=== PATIENT | male | born 1965 | race Caucasian/White ===

== ENCOUNTER → 2016-08-06 | Outpatient (REF) | payer MEDICAID ==
[~2016-08-06] MED LIST: COUM7.5T PO; TYLE325T5 PO; TYLE650T30 PO
[2016-08-06 11:19] LABS: INR 2.62
== END ==
LOC: M SFHCCLAY 08:11
PROVIDERS: ATTEND Family Medicine
DX: Z79.01 Long term (current) use of anticoagulants (principal)

== ENCOUNTER → 2016-09-03 | Outpatient (REF) | payer MEDICAID ==
[2016-09-03 12:20] LABS: INR 2.26
== END ==
LOC: M LABSMT 08:22
PROVIDERS: ATTEND Family Medicine
DX: Z79.01 Long term (current) use of anticoagulants (principal)

== ENCOUNTER → 2016-10-01 | Outpatient (REF) | payer MEDICAID ==
[2016-10-01 12:01] LABS: INR 1.98
== END ==
LOC: M SFHCCLAY 08:18
PROVIDERS: ATTEND Family Medicine
DX: Z51.81 Encounter for therapeutic drug level monitoring (principal); Z79.01 Long term (current) use of anticoagulants

== ENCOUNTER → 2016-10-15 | Outpatient (REF) | payer MEDICAID ==
[2016-10-15 11:28] LABS: INR 2.5
== END ==
LOC: M SFHCCLAY 08:33
PROVIDERS: ATTEND Family Medicine
DX: Z51.81 Encounter for therapeutic drug level monitoring (principal); Z79.01 Long term (current) use of anticoagulants

== ENCOUNTER → 2016-11-12 | Outpatient (REF) | payer OTHER ==
[2016-11-12 12:44] LABS: INR 1.78
[2016-11-12 12:57] LABS: ANION GAP 10 MEQ/L (8-16); BLOOD UREA NITROGEN 10 MG/DL (7-18); CALCIUM LEVEL 8.7 MG/DL (8.5-10.1); CARBON DIOXIDE LEVEL 26 MEQ/L (21-32); CHLORIDE LEVEL 103 MEQ/L (98-107); CREATININE FOR GFR 0.76 MG/DL (0.70-1.30); GLOMERULAR FILTRATION RATE > 60.0 (>60); GLUCOSE, FASTING 176 MG/DL (70-105); POTASSIUM SERUM 3.9 MEQ/L (3.5-5.1); SODIUM LEVEL 139 MEQ/L (136-145)
== END ==
LOC: M SFHCCLAY 08:27
PROVIDERS: ATTEND Family Medicine
DX: I10 Essential (primary) hypertension (principal); E11.9 Type 2 diabetes mellitus without complications; Z79.01 Long term (current) use of anticoagulants

== ENCOUNTER → 2016-11-26 | Outpatient (REF) | payer OTHER ==
[2016-11-26 11:57] LABS: INR 2.84
== END ==
LOC: M SFHCCLAY 07:43
PROVIDERS: ATTEND Family Medicine
DX: Z51.81 Encounter for therapeutic drug level monitoring (principal); Z79.01 Long term (current) use of anticoagulants

== ENCOUNTER → 2016-12-24 | Outpatient (REF) | payer OTHER ==
[2016-12-24 11:39] LABS: INR 2.25
== END ==
LOC: M SFHCCLAY 09:07
PROVIDERS: ATTEND Family Medicine
DX: Z51.81 Encounter for therapeutic drug level monitoring (principal); Z79.01 Long term (current) use of anticoagulants

== ENCOUNTER → 2017-01-02 | Outpatient (CLI) | payer OTHER ==
--- NOTE | 2017-01-03 01:27 | REP ---
Clinical: Chronic cough . Comparison: 07/25/2014 . Technique: PA and lateral. Findings: The mediastinum and cardiac silhouette are normal. The lung [place] are clear and without acute consolidation, effusion, or pneumothorax. The skeletal structures are intact and normal. Impression: 1. No acute cardiopulmonary process. 2. If the patient remains symptomatic consider chest CT for further investigation.. Signed by Julio Torres MD 01/03/2017 01:19 A
== END ==
LOC: M CLY 11:36
PROVIDERS: ATTEND Family Medicine
DX: R05 Cough (principal)

== ENCOUNTER → 2017-01-22 | Outpatient (REF) | payer OTHER ==
[2017-01-22 11:57] LABS: INR 2.27
== END ==
LOC: M SFHCCLAY 08:41
PROVIDERS: ATTEND Family Medicine
DX: Z51.81 Encounter for therapeutic drug level monitoring (principal); Z79.01 Long term (current) use of anticoagulants

== ENCOUNTER → 2017-01-24 | Outpatient (REF) | payer OTHER ==
[2017-01-24 12:14] LABS: INR 2.12
== END ==
LOC: M SFHCCLAY 10:42
PROVIDERS: ATTEND Family Medicine
DX: Z51.81 Encounter for therapeutic drug level monitoring (principal); Z79.01 Long term (current) use of anticoagulants

== ENCOUNTER → 2017-02-06 | Outpatient (REF) | payer OTHER | LOC: M SFHCCLAY 08:33 | PROVIDERS: ATTEND Family Medicine | DX: Z51.81 Encounter for therapeutic drug level monitoring (principal); Z79.01 Long term (current) use of anticoagulants ==

== ENCOUNTER → 2017-02-13 | Outpatient (CLI) | payer OTHER ==
[~2017-02-13] MED LIST changes: +METHACHOLINE KIT (J7674) INH ONE
--- NOTE | 2017-02-13 15:07 | PFTRPT ---
Tech: Margo GILLIAM RRT Age: 51 Sex: Male Race: Height: 77.00 Inches Weight: 415.00 Lbs BSA: 3.05 Diagnosis: CHRONIC COUGH METHACHOLINE CHALLENGE REPORT: ORDERING PROVIDER: Inocente Castillo MD DATE OF SERVICE: 02/13/17 INTERPRETATION: The study was of excellent technical quality. Under protocol, methacholine was administered. At a maximal dose of 25 mg (188.875 CDUs) of methacholine,a 28% decline in the FEV1 was noted. A PC20 of 13.01 is in the indeterminate category. Flow rates did return to baseline post bronchodilator administration. IMPRESSION: Borderline methacholine challenge study in view of the above. Please correlate clinically. MTDD
== END ==
LOC: M CARPUL 13:55
PROVIDERS: ATTEND Family Medicine
DX: R05 Cough (principal)

== ENCOUNTER → 2017-02-14 | Outpatient (CLI) | payer OTHER ==
[~2017-02-14] MED LIST changes: -METHACHOLINE KIT (J7674) INH ONE
--- NOTE | 2017-02-14 08:50 | REP ---
CT of the chest without IV contrast: Comparison is the chest CT pulmonary angiogram of 10/19/2014. There are no pulmonary emboli on the comparison chest CT. This comparison chest CT is the most recent prior chest CT. On the current study there is minor discoid atelectasis in the right middle lobe. There is a small linear parenchymal scar in the deep os posterior sulcus of the left lung, unchanged. The lung hamilton otherwise clear. There are no acute infiltrates. There are no masses or nodules. There is no mediastinal or axillary adenopathy. In the absence of IV contrast the study is insensitive for hilar adenopathy. The unenhanced thoracic aorta is unremarkable. Cardiac size is normal. There is no pericardial effusion. The visualized upper abdominal contents demonstrate a single gallbladder calculus. This is unchanged. The adrenals are unremarkable. The visualized portions of the liver, spleen and pancreas are unremarkable. Impression: Cholelithiasis, unchanged. Minor discoid atelectasis in the right middle lobe. Small parenchymal scar in the deep posterior sulcus of the left lung. The the lung hamilton otherwise clear. There were no pulmonary emboli most recent prior CT chest pulmonary angiogram. Signed by Layo Chaudhari MD 02/14/2017 08:42 A
== END ==
LOC: M RAD 07:35
PROVIDERS: ATTEND Family Medicine
DX: K80.20 Calculus of gallbladder without cholecystitis without obstruction (principal); J98.11 Atelectasis

== ENCOUNTER → 2017-03-05 | Outpatient (REF) | payer OTHER ==
[2017-03-05 12:09] LABS: INR 1.99
== END ==
LOC: M SFHCCLAY 08:40
PROVIDERS: ATTEND Family Medicine
DX: Z51.81 Encounter for therapeutic drug level monitoring (principal); Z79.01 Long term (current) use of anticoagulants

== ENCOUNTER → 2017-03-13 | Outpatient (REF) | payer OTHER | LOC: M SFHCCLAY 17:25 | PROVIDERS: ATTEND Family Medicine | DX: L91.8 Other hypertrophic disorders of the skin (principal) ==

== ENCOUNTER → 2017-03-31 | Outpatient (REF) | LOC: M LAB 15:51 | PROVIDERS: ATTEND Nurse Practitioner Adult Health | DX: Z02.1 Encounter for pre-employment examination (principal) ==

== ENCOUNTER → 2017-04-02 | Outpatient (REF) | payer OTHER ==
[2017-04-02 19:41] LABS: INR 1.89
== END ==
LOC: M SFHCCLAY 08:20
PROVIDERS: ATTEND Family Medicine
DX: Z79.01 Long term (current) use of anticoagulants (principal)

== ENCOUNTER → 2017-04-16 | Outpatient (REF) | payer OTHER ==
[2017-04-16 11:36] LABS: INR 2.29
== END ==
LOC: M SFHCCLAY 08:43
PROVIDERS: ATTEND Family Medicine
DX: Z51.81 Encounter for therapeutic drug level monitoring (principal); Z79.01 Long term (current) use of anticoagulants

== ENCOUNTER → 2017-05-14 | Outpatient (REF) | payer OTHER ==
[2017-05-14 11:58] LABS: INR 2.26
== END ==
LOC: M SFHCCLAY 09:01
PROVIDERS: ATTEND Family Medicine
DX: Z79.01 Long term (current) use of anticoagulants (principal)

== ENCOUNTER → 2017-06-11 | Outpatient (REF) | payer OTHER ==
[2017-06-11 11:59] LABS: INR 2.35
== END ==
LOC: M SFHCCLAY 08:35
PROVIDERS: ATTEND Family Medicine
DX: I26.99 Other pulmonary embolism without acute cor pulmonale (principal)

== ENCOUNTER → 2017-07-10 | Outpatient (REF) | payer BC ==
[2017-07-10 11:44] LABS: INR 1.97
== END ==
LOC: M SFHCCLAY 09:02
PROVIDERS: ATTEND Family Medicine
DX: Z51.81 Encounter for therapeutic drug level monitoring (principal); Z79.01 Long term (current) use of anticoagulants

== ENCOUNTER → 2017-07-24 | Outpatient (REF) | payer BC ==
[2017-07-24 12:40] LABS: INR 2.06; PROTHROMBIN TIME 23.9 SECONDS (12.4-14.5)
== END ==
LOC: M SFHCCLAY 09:06
DX: Z51.81 Encounter for therapeutic drug level monitoring (principal); Z79.01 Long term (current) use of anticoagulants
CPT/HCPCS: 85610

== ENCOUNTER → 2017-08-21 | Outpatient (REF) | payer BC ==
[2017-08-21 12:46] LABS: INR 2.15; PROTHROMBIN TIME 24.8 SECONDS (12.4-14.5)
== END ==
LOC: M SFHCCLAY 08:52
DX: Z51.81 Encounter for therapeutic drug level monitoring (principal); Z79.01 Long term (current) use of anticoagulants
CPT/HCPCS: 85610

== ENCOUNTER → 2017-09-18 | Outpatient (REF) | payer BC ==
[2017-09-18 11:55] LABS: INR 1.94; PROTHROMBIN TIME 22.8 SECONDS (12.4-14.5)
[2017-09-18 12:39] LABS: ANION GAP 8 MEQ/L (8-16); BLOOD UREA NITROGEN 14 MG/DL (7-18); CALCIUM LEVEL 9.3 MG/DL (8.5-10.1); CARBON DIOXIDE LEVEL 30 MEQ/L (21-32); CHLORIDE LEVEL 102 MEQ/L (98-107); CREATININE FOR GFR 0.72 MG/DL (0.70-1.30); GLOMERULAR FILTRATION RATE > 60.0 (>56); GLUCOSE, FASTING 85 MG/DL (70-100); POTASSIUM SERUM 3.9 MEQ/L (3.5-5.1); SODIUM LEVEL 140 MEQ/L (136-145)
[2017-09-18 13:14] LABS: ESTIMATED AVERAGE GLUCOSE 128 MG/DL (60-110); HEMOGLOBIN A1c 6.1 %
== END ==
LOC: M SFHCCLAY 08:59
DX: I26.99 Other pulmonary embolism without acute cor pulmonale (principal); E11.9 Type 2 diabetes mellitus without complications; I10 Essential (primary) hypertension
CPT/HCPCS: 83036

== ENCOUNTER → 2017-10-16 | Outpatient (REF) | payer BC ==
[2017-10-16 11:41] LABS: INR 2.08; PROTHROMBIN TIME 24.1 SECONDS (12.4-14.5)
== END ==
LOC: M SFHCCLAY 08:22
DX: Z79.01 Long term (current) use of anticoagulants (principal)
CPT/HCPCS: 85610

== ENCOUNTER → 2017-11-13 | Outpatient (REF) | payer BC ==
[2017-11-13 11:50] LABS: INR 2.08; PROTHROMBIN TIME 24.1 SECONDS (12.4-14.5)
== END ==
LOC: M SFHCCLAY 08:34
DX: Z51.81 Encounter for therapeutic drug level monitoring (principal); Z79.01 Long term (current) use of anticoagulants
CPT/HCPCS: 85610

== ENCOUNTER → 2018-01-08 | Outpatient (REF) | payer BC ==
[2018-01-08 12:12] LABS: INR 1.96
== END ==
LOC: M SFHCCLAY 08:30
DX: Z79.01 Long term (current) use of anticoagulants (principal)
CPT/HCPCS: 85610

== ENCOUNTER → 2018-02-05 | Outpatient (REF) | payer BC ==
[2018-02-05 11:57] LABS: INR 2.23; PROTHROMBIN TIME 25.1 SECONDS (12.1-14.4)
== END ==
LOC: M SFHCCLAY 09:21
DX: Z51.81 Encounter for therapeutic drug level monitoring (principal); Z79.01 Long term (current) use of anticoagulants

== ENCOUNTER → 2018-03-05 | Outpatient (REF) | payer BC ==
[2018-03-05 12:55] LABS: INR 2.19; PROTHROMBIN TIME 24.8 SECONDS (12.1-14.4)
== END ==
LOC: M SFHCCLAY 08:46
DX: Z51.81 Encounter for therapeutic drug level monitoring (principal); Z79.01 Long term (current) use of anticoagulants
CPT/HCPCS: 85610

== ENCOUNTER → 2018-04-01 | Outpatient (REF) | payer BC ==
[2018-04-01 12:15] LABS: INR 2.44
== END ==
LOC: M SFHCCLAY 08:02
DX: Z79.01 Long term (current) use of anticoagulants (principal)
CPT/HCPCS: 85610

== ENCOUNTER → 2018-04-29 | Outpatient (REF) | payer BC ==
[2018-04-29 12:07] LABS: INR 2.19; PROTHROMBIN TIME 24.8 SECONDS (12.1-14.4)
== END ==
LOC: M SFHCCLAY 08:35
DX: Z79.01 Long term (current) use of anticoagulants (principal)
CPT/HCPCS: 85610

== ENCOUNTER → 2018-05-27 | Outpatient (REF) | payer BC ==
[2018-05-27 12:02] LABS: INR 2.44
== END ==
LOC: M SFHCCLAY 08:33
DX: Z51.81 Encounter for therapeutic drug level monitoring (principal); Z79.01 Long term (current) use of anticoagulants

== ENCOUNTER → 2018-06-24 | Outpatient (REF) | payer BC ==
[2018-06-24 11:51] LABS: INR 2.08; PROTHROMBIN TIME 23.8 SECONDS (12.1-14.4)
== END ==
LOC: M SFHCCLAY 09:12
DX: Z79.01 Long term (current) use of anticoagulants (principal)
CPT/HCPCS: 85610

== ENCOUNTER → 2018-07-01 | Outpatient (REF) | payer BC ==
[2018-07-02 11:42] LABS: ANION GAP 7 MEQ/L (8-16); BLOOD UREA NITROGEN 16 MG/DL (7-18); CALCIUM LEVEL 8.9 MG/DL (8.5-10.1); CARBON DIOXIDE LEVEL 30 MEQ/L (21-32); CHLORIDE LEVEL 104 MEQ/L (98-107); CREATININE FOR GFR 0.75 MG/DL (0.70-1.30); GLOMERULAR FILTRATION RATE > 60.0 (>56); GLUCOSE, FASTING 88 MG/DL (70-100); POTASSIUM SERUM 4.4 MEQ/L (3.5-5.1); SODIUM LEVEL 141 MEQ/L (136-145)
[2018-07-02 12:03] LABS: ESTIMATED AVERAGE GLUCOSE 128 MG/DL (60-110); HEMOGLOBIN A1c 6.1 %
== END ==
LOC: M SFHCCLAY 15:17
DX: E11.9 Type 2 diabetes mellitus without complications (principal)
CPT/HCPCS: 83036

== ENCOUNTER → 2018-08-21 | Outpatient (REF) | payer BC ==
[2018-08-21 12:22] LABS: INR 1.85; PROTHROMBIN TIME 21.7 SECONDS (12.1-14.4)
== END ==
LOC: M SFHCCLAY 08:57
PROVIDERS: ATTEND Family Medicine
DX: Z79.01 Long term (current) use of anticoagulants (principal)

== ENCOUNTER → 2018-09-03 | Outpatient (REF) | payer BC ==
[2018-09-03 12:07] LABS: INR 2.4; PROTHROMBIN TIME 26.7 SECONDS (12.1-14.4)
== END ==
LOC: M SFHCCLAY 08:41
PROVIDERS: ATTEND Family Medicine
DX: Z79.01 Long term (current) use of anticoagulants (principal)

== ENCOUNTER → 2018-10-01 | Outpatient (REF) | payer BC ==
[2018-10-01 13:28] LABS: INR 1.99
== END ==
LOC: M SFHCCLAY 08:50
PROVIDERS: ATTEND Family Medicine
DX: Z79.01 Long term (current) use of anticoagulants (principal); I26.99 Other pulmonary embolism without acute cor pulmonale; I82.409 Acute embolism and thrombosis of unspecified deep veins of unspecified lower extremity

== ENCOUNTER → 2018-10-29 | Outpatient (REF) | payer BC ==
[2018-10-29 12:30] LABS: INR 2.34; PROTHROMBIN TIME 26.1 SECONDS (12.1-14.4)
== END ==
LOC: M SFHCCLAY 09:30
PROVIDERS: ATTEND Family Medicine
DX: Z51.81 Encounter for therapeutic drug level monitoring (principal); Z79.01 Long term (current) use of anticoagulants; I26.99 Other pulmonary embolism without acute cor pulmonale; I82.409 Acute embolism and thrombosis of unspecified deep veins of unspecified lower extremity

== ENCOUNTER → 2018-11-09 | Outpatient (REF) | payer BC ==
[2018-11-09 11:43] LABS: ALBUMIN 3.6 GM/DL (3.2-5.2); ALT/SGPT 35 U/L (12-78); BILIRUBIN,TOTAL 0.3 MG/DL (0.2-1.0); BLOOD UREA NITROGEN 11 MG/DL (7-18); CALCIUM LEVEL 8.7 MG/DL (8.5-10.1); CARBON DIOXIDE LEVEL 25 MEQ/L (21-32); CHLORIDE LEVEL 106 MEQ/L (98-107); CHOLESTEROL LEVEL 164 MG/DL (<200); CHOLESTEROL RISK RATIO 4.969 (<5); CREATININE FOR GFR 0.77 MG/DL (0.70-1.30); GLOMERULAR FILTRATION RATE > 60.0 (>56); GLUCOSE, FASTING 109 MG/DL (70-100); HDL CHOLESTEROL 33 MG/DL (>40); NON-HDL-C 131 MG/DL; POTASSIUM SERUM 3.9 MEQ/L (3.5-5.1); SODIUM LEVEL 139 MEQ/L (136-145); TOTAL PROTEIN 7.1 GM/DL (6.4-8.2); TRIGLYCERIDES LEVEL 230 MG/DL (<150)
== END ==
LOC: M SFHCCLAY 08:03
PROVIDERS: ATTEND Family Medicine
DX: I10 Essential (primary) hypertension (principal); E11.9 Type 2 diabetes mellitus without complications

== ENCOUNTER → 2018-11-09 | Outpatient (CLI) | payer BC ==
--- NOTE | 2018-11-09 10:07 | REP ---
CHEST X-RAY: Three views. HISTORY: Essential hypertension. COMPARISON STUDY: January 02, 2017. FINDINGS: The lungs are well inflated and clear. Pleural angles are sharp. Heart size is normal. The thoracic aorta somewhat tortuous. There are degenerative changes in the thoracic spine. IMPRESSION: No active disease.
== END ==
LOC: M CLY 08:15
PROVIDERS: ATTEND Family Medicine
DX: I10 Essential (primary) hypertension (principal); R05 Cough; M51.34 Other intervertebral disc degeneration, thoracic region

== ENCOUNTER → 2018-11-26 | Outpatient (REF) | payer BC ==
[2018-11-26 11:53] LABS: INR 2.23; PROTHROMBIN TIME 25.2 SECONDS (12.1-14.4)
== END ==
LOC: M SFHCCLAY 08:30
PROVIDERS: ATTEND Family Medicine
DX: Z79.01 Long term (current) use of anticoagulants (principal)

== ENCOUNTER → 2018-12-24 | Outpatient (REF) | payer BC ==
[2018-12-24 11:58] LABS: INR 1.59; PROTHROMBIN TIME 19.2 SECONDS (12.1-14.4)
== END ==
LOC: M SFHCCLAY 08:31
PROVIDERS: ATTEND Family Medicine
DX: Z79.01 Long term (current) use of anticoagulants (principal); I26.99 Other pulmonary embolism without acute cor pulmonale; I82.409 Acute embolism and thrombosis of unspecified deep veins of unspecified lower extremity

== ENCOUNTER → 2019-01-07 | Outpatient (REF) | payer BC ==
[2019-01-07 12:28] LABS: INR 1.56; PROTHROMBIN TIME 18.5 SECONDS (11.8-14.0)
== END ==
LOC: M SFHCCLAY 09:06
PROVIDERS: ATTEND Family Medicine
DX: Z79.01 Long term (current) use of anticoagulants (principal); I26.99 Other pulmonary embolism without acute cor pulmonale; I82.409 Acute embolism and thrombosis of unspecified deep veins of unspecified lower extremity

== ENCOUNTER → 2019-01-20 | Outpatient (REF) | payer BC ==
[2019-01-20 12:02] LABS: INR 2.9; PROTHROMBIN TIME 30.2 SECONDS (11.8-14.0)
== END ==
LOC: M SFHCCLAY 08:48
PROVIDERS: ATTEND Family Medicine
DX: Z79.01 Long term (current) use of anticoagulants (principal); I26.99 Other pulmonary embolism without acute cor pulmonale

== ENCOUNTER → 2019-02-03 | Outpatient (REF) | payer BC ==
[2019-02-03 11:39] LABS: INR 2.86; PROTHROMBIN TIME 29.9 SECONDS (11.8-14.0)
== END ==
LOC: M SFHCCLAY 08:44
PROVIDERS: ATTEND Family Medicine
DX: Z79.01 Long term (current) use of anticoagulants (principal); I26.99 Other pulmonary embolism without acute cor pulmonale; I82.409 Acute embolism and thrombosis of unspecified deep veins of unspecified lower extremity

== ENCOUNTER → 2019-02-10 | Outpatient (CLI) | payer BC ==
--- NOTE | 2019-02-11 02:47 | REP ---
Clinical: Left knee pain. Technique: AP, lateral, bilateral oblique and sunrise views of the left knee. Findings: [place] view demonstrates fraying along the anterior patellar margin suggesting patellar tendinopathy as well as subtle sclerosis along the posterior patellar margin with very early lateral spurring suggesting associated mild arthritic change. There is slight sclerosis and very minimal joint space narrowing involving the medial tibiofemoral joint space. No acute fracture or dislocation. Suprapatellar effusion cannot be excluded. Impression: Mild arthritic changes as described above.
== END ==
LOC: M CLY 10:12
PROVIDERS: ATTEND Family Medicine
DX: M17.12 Unilateral primary osteoarthritis, left knee (principal)

== ENCOUNTER → 2019-04-01 | Outpatient (REF) | payer BC ==
[2019-04-01 12:52] LABS: INR 2.83; PROTHROMBIN TIME 29.7 SECONDS (11.8-14.0)
== END ==
LOC: M SFHCCLAY 08:38
PROVIDERS: ATTEND Family Medicine
DX: I26.99 Other pulmonary embolism without acute cor pulmonale (principal); Z79.01 Long term (current) use of anticoagulants; I82.409 Acute embolism and thrombosis of unspecified deep veins of unspecified lower extremity

== ENCOUNTER → 2019-04-29 | Outpatient (REF) | payer BC ==
[2019-04-29 12:18] LABS: INR 2.63
== END ==
LOC: M SFHCCLAY 09:00
PROVIDERS: ATTEND Family Medicine
DX: Z79.01 Long term (current) use of anticoagulants (principal); I26.99 Other pulmonary embolism without acute cor pulmonale; I82.409 Acute embolism and thrombosis of unspecified deep veins of unspecified lower extremity

== ENCOUNTER → 2019-05-27 | Outpatient (REF) | payer BC ==
[2019-05-27 12:07] LABS: INR 2.93; PROTHROMBIN TIME 30.5 SECONDS (11.8-14.0)
== END ==
LOC: M SFHCCLAY 09:04
PROVIDERS: ATTEND Family Medicine
DX: Z79.01 Long term (current) use of anticoagulants (principal); I26.99 Other pulmonary embolism without acute cor pulmonale; I82.409 Acute embolism and thrombosis of unspecified deep veins of unspecified lower extremity

== ENCOUNTER → 2019-06-24 | Outpatient (REF) | payer BC ==
[2019-06-24 12:09] LABS: INR 3.78; PROTHROMBIN TIME 37.4 SECONDS (11.8-14.0)
== END ==
LOC: M SFHCCLAY 09:27
PROVIDERS: ATTEND Family Medicine
DX: Z79.01 Long term (current) use of anticoagulants (principal); I26.99 Other pulmonary embolism without acute cor pulmonale; I82.409 Acute embolism and thrombosis of unspecified deep veins of unspecified lower extremity

== ENCOUNTER → 2019-07-08 | Outpatient (REF) | payer BC ==
[2019-07-08 11:47] LABS: INR 2.73; PROTHROMBIN TIME 28.8 SECONDS (11.8-14.0)
== END ==
LOC: M SFHCCLAY 08:39
PROVIDERS: ATTEND Family Medicine
DX: Z79.01 Long term (current) use of anticoagulants (principal); I26.99 Other pulmonary embolism without acute cor pulmonale; I82.409 Acute embolism and thrombosis of unspecified deep veins of unspecified lower extremity

== ENCOUNTER → 2019-07-23 | Outpatient (REF) | payer BC ==
[2019-07-23 11:40] LABS: INR 3.7; PROTHROMBIN TIME 36.8 SECONDS (11.8-14.0)
== END ==
LOC: M SFHCCLAY 09:05
PROVIDERS: ATTEND Family Medicine
DX: Z79.01 Long term (current) use of anticoagulants (principal)

== ENCOUNTER → 2019-10-20 | Outpatient (CLI) | payer BC | LOC: M LABSMTC 09:49 | PROVIDERS: ATTEND Family Medicine | DX: Z11.59 Encounter for screening for other viral diseases (principal); Z20.828 Contact with and (suspected) exposure to other viral communicable diseases ==

== ENCOUNTER → 2020-04-13 | Outpatient (REF) | payer BC ==
[~2020-04-13] MED LIST changes: -COUM7.5T PO; +COUM7.5T6 PO
[2020-04-13 12:45] LABS: INR 2.08; PROTHROMBIN TIME 23.9 SECONDS (12.5-14.3)
== END ==
LOC: M LABDRAWC 11:27
PROVIDERS: ATTEND Family Medicine
DX: Z79.01 Long term (current) use of anticoagulants (principal); Z86.718 Personal history of other venous thrombosis and embolism; Z86.711 Personal history of pulmonary embolism

== ENCOUNTER → 2020-05-11 | Outpatient (REF) | payer BC | LOC: M SFHCCLAY 07:31 | PROVIDERS: ATTEND Family Medicine | DX: I26.99 Other pulmonary embolism without acute cor pulmonale (principal) ==

== ENCOUNTER → 2020-08-17 | Outpatient (REF) | payer BC | LOC: M SFHCCLAY 08:07 | PROVIDERS: ATTEND Family Medicine | DX: Z53.9 Procedure and treatment not carried out, unspecified reason (principal); Z79.01 Long term (current) use of anticoagulants ==

== ENCOUNTER → 2020-11-02 | Outpatient (CLI) | payer BC ==
--- NOTE | 2020-11-03 06:11 | REP ---
INDICATION: ACHILLIES TENDINITIS COMPARISON: None. TECHNIQUE: AP, lateral, bilateral oblique views. FINDINGS: Arthritic degenerative changes include cortical irregularities and subtle spurring primarily noted at the medial malleolus and hindfoot. The ankle mortise is intact. Diffuse soft tissue swelling noted. Lateral view demonstrates bulky large osteophyte at the insertion of the Achilles tendon on the calcaneus as well as multiple calcaneal heel spurs. IMPRESSION: Moderate arthritic degenerative changes as described above. <Electronically signed by Julio Torres > 11/03/20 [id number]
--- NOTE | 2020-11-03 06:13 | REP ---
INDICATION: CHRONIC COUGH COMPARISON: 11/09/2018 TECHNIQUE: PA and lateral. FINDINGS: The mediastinum and cardiac silhouette are normal. The lung ham[place] demonstrate chronic appearing interstitial changes without acute consolidation, effusion, or pneumothorax. The skeletal structures are intact and normal. IMPRESSION: No acute cardiopulmonary process. Chronic appearing changes. If the patient remains symptomatic consider chest CT for further investigation. <Electronically signed by Julio Torres > 11/03/20 0610
== END ==
LOC: M CLY 10:43
PROVIDERS: ATTEND Family Medicine
DX: R05 Cough (principal); M19.072 Primary osteoarthritis, left ankle and foot

== ENCOUNTER → 2020-11-30 | Outpatient (REF) | payer BC ==
[2020-11-30 11:57] LABS: BASO # 0.1 10^3/uL (0.0-0.2); BASO % 1.2 % (0.0-1.0); EOS # 0.3 10^3/uL (0.0-0.5); EOS % 2.5 % (0.0-3.0); HEMATOCRIT 44.2 % (42.0-52.0); HEMOGLOBIN 14.9 g/dl (13.5-17.5); LYMPH # 2.5 10^3/uL (1.5-5.0); MEAN CORPUSCULAR HEMOGLOBIN 29.2 pg (27.0-33.0); MEAN CORPUSCULAR HGB CONC 33.7 g/dl (32.0-36.5); MEAN CORPUSCULAR VOLUME 86.7 fl (80.0-96.0); MONO # 0.8 10^3/uL (0.0-0.8); MONO % 8.3 % (2.0-8.0); NEUTROPHILS # 6.3 10^3/uL (1.5-8.5); NEUTROPHILS % 62.6 % (36.0-66.0); PLATELET COUNT, AUTOMATED 256 10^3/uL (150-450); WHITE BLOOD COUNT 10.1 10^3/uL (4.0-10.0)
[2020-11-30 12:31] LABS: INR 2.53; PROTHROMBIN TIME 27.8 SECONDS (12.5-14.3)
[2020-11-30 12:43] LABS: ALBUMIN 3.5 GM/DL (3.2-5.2); ALT/SGPT 30 U/L (12-78); BILIRUBIN,TOTAL 0.3 MG/DL (0.2-1.0); BLOOD UREA NITROGEN 13 MG/DL (7-18); CALCIUM LEVEL 9.2 MG/DL (8.5-10.1); CARBON DIOXIDE LEVEL 29 MEQ/L (21-32); CHLORIDE LEVEL 102 MEQ/L (98-107); CHOLESTEROL LEVEL 177 MG/DL (<200); CHOLESTEROL RISK RATIO 5.205 (<5); CREATININE FOR GFR 0.88 MG/DL (0.70-1.30); GLOMERULAR FILTRATION RATE > 60.0 (>56); GLUCOSE, FASTING 270 MG/DL (70-100); HDL CHOLESTEROL 34 MG/DL (>40); LDL CHOLESTEROL 63 MG/DL (<100); NON-HDL-C 143 MG/DL; POTASSIUM SERUM 3.9 MEQ/L (3.5-5.1); SODIUM LEVEL 138 MEQ/L (136-145); TOTAL PROTEIN 7.6 GM/DL (6.4-8.2); TRIGLYCERIDES LEVEL 399 MG/DL (<150)
[2020-11-30 13:02] LABS: HEMOGLOBIN A1c 9.6 %
== END ==
LOC: M SFHCCLAY 08:00
PROVIDERS: ATTEND Family Medicine
DX: I26.99 Other pulmonary embolism without acute cor pulmonale (principal); I10 Essential (primary) hypertension; E11.9 Type 2 diabetes mellitus without complications; Z79.01 Long term (current) use of anticoagulants

== ENCOUNTER → 2021-01-02 | Outpatient (REF) | payer BC ==
[2021-01-02 12:33] LABS: INR 2.02; PROTHROMBIN TIME 23.3 SECONDS (12.5-14.3)
== END ==
LOC: M SFHCCLAY 08:48
PROVIDERS: ATTEND Family Medicine
DX: Z79.01 Long term (current) use of anticoagulants (principal)

== ENCOUNTER → 2021-05-04 | Outpatient (REF) | payer BC ==
[2021-05-04 16:52] LABS: HEMOGLOBIN A1c 9.4 %
[2021-05-04 17:04] LABS: ALBUMIN 3.3 GM/DL (3.2-5.2); ALT/SGPT 32 U/L (12-78); BILIRUBIN,TOTAL 0.3 MG/DL (0.2-1.0); BLOOD UREA NITROGEN 11 MG/DL (7-18); CALCIUM LEVEL 9.2 MG/DL (8.5-10.1); CARBON DIOXIDE LEVEL 28 MEQ/L (21-32); CHLORIDE LEVEL 105 MEQ/L (98-107); CHOLESTEROL LEVEL 175 MG/DL (<200); CHOLESTEROL RISK RATIO 5.303 (<5); CREATININE FOR GFR 0.77 MG/DL (0.70-1.30); GLOMERULAR FILTRATION RATE > 60.0 (>56); GLUCOSE, FASTING 182 MG/DL (70-100); HDL CHOLESTEROL 33 MG/DL (>40); LDL CHOLESTEROL 91 MG/DL (<100); NON-HDL-C 142 MG/DL; POTASSIUM SERUM 3.9 MEQ/L (3.5-5.1); SODIUM LEVEL 139 MEQ/L (136-145); TOTAL PROTEIN 7.3 GM/DL (6.4-8.2); TRIGLYCERIDES LEVEL 254 MG/DL (<150)
== END ==
LOC: M SFHCCLAY 11:19
PROVIDERS: ATTEND Family Medicine
DX: I10 Essential (primary) hypertension (principal); E11.9 Type 2 diabetes mellitus without complications

== ENCOUNTER → 2021-09-19 | Outpatient (REF) | payer BC | LOC: M SFHCCLAY 08:50 | PROVIDERS: ATTEND Family Medicine | DX: B34.9 Viral infection, unspecified (principal) ==

== ENCOUNTER → 2021-10-31 | Outpatient (REF) | payer BC ==
[2021-10-31 16:17] LABS: HEMOGLOBIN A1c 9.6 %
[2021-10-31 16:19] LABS: BLOOD UREA NITROGEN 13 MG/DL (7-18); CALCIUM LEVEL 8.3 MG/DL (8.5-10.1); CARBON DIOXIDE LEVEL 27 MEQ/L (21-32); CHLORIDE LEVEL 103 MEQ/L (98-107); CREATININE FOR GFR 0.93 MG/DL (0.70-1.30); GLOMERULAR FILTRATION RATE > 60.0 (>56); GLUCOSE, FASTING 287 MG/DL (70-100); POTASSIUM SERUM 4.1 MEQ/L (3.5-5.1); SODIUM LEVEL 137 MEQ/L (136-145)
== END ==
LOC: M SFHCCLAY 09:32
PROVIDERS: ATTEND Family Medicine
DX: E11.9 Type 2 diabetes mellitus without complications (principal)

== ENCOUNTER → 2021-12-24 | Outpatient (CLI) | payer BC | LOC: M CLY 11:24 | PROVIDERS: ATTEND Physician Assistant | DX: M25.532 Pain in left wrist (principal) ==

== ENCOUNTER → 2022-01-26 | Outpatient (CLI) | payer BC | LOC: M RAD 11:23 | PROVIDERS: ATTEND Orthopaedic Surgery | DX: M25.332 Other instability, left wrist (principal) ==

== ENCOUNTER → 2022-02-26 | Outpatient (CLI) | payer BC | LOC: M CLY 11:11 | PROVIDERS: ATTEND Family Medicine | DX: M54.2 Cervicalgia (principal) ==

== ENCOUNTER → 2022-03-05 | Outpatient (REF) | payer BC | LOC: M SFHCCLAY 07:09 | PROVIDERS: ATTEND Family Medicine | DX: E11.9 Type 2 diabetes mellitus without complications (principal); Z79.01 Long term (current) use of anticoagulants; Z53.9 Procedure and treatment not carried out, unspecified reason ==

== ENCOUNTER → 2022-03-06 | Outpatient (REF) | payer BC ==
[2022-03-06 12:19] LABS: HEMOGLOBIN A1c 8.2 %
[2022-03-06 12:30] LABS: INR 2.16; PROTHROMBIN TIME 24.5 SECONDS (12.7-14.5)
[2022-03-06 13:01] LABS: BLOOD UREA NITROGEN 13 MG/DL (7-18); CALCIUM LEVEL 9.3 MG/DL (8.5-10.1); CARBON DIOXIDE LEVEL 25 MEQ/L (21-32); CHLORIDE LEVEL 106 MEQ/L (98-107); CREATININE FOR GFR 0.74 MG/DL (0.70-1.30); GLOMERULAR FILTRATION RATE > 60.0 (>56); GLUCOSE, FASTING 176 MG/DL (70-100); POTASSIUM SERUM 3.7 MEQ/L (3.5-5.1); SODIUM LEVEL 136 MEQ/L (136-145)
== END ==
LOC: M SFHCCLAY 08:06
PROVIDERS: ATTEND Family Medicine
DX: Z79.01 Long term (current) use of anticoagulants (principal)

== ENCOUNTER → 2022-07-05 | Outpatient (REF) | payer BC ==
[2022-07-05 17:43] LABS: INR 1.36
== END ==
LOC: M SFHCCLAY 12:58
PROVIDERS: ATTEND Family Medicine
DX: R04.0 Epistaxis (principal); Z79.01 Long term (current) use of anticoagulants

== ENCOUNTER → 2022-08-07 | Outpatient (REF) | payer BC ==
[2022-08-07 12:13] LABS: INR 1.96; PROTHROMBIN TIME 22.7 SECONDS (12.5-14.5)
[2022-08-07 12:26] LABS: ALBUMIN 3.4 G/DL (3.2-5.2); ALKALINE PHOSPHATASE 68 U/L (46-116); ALT/SGPT 26 U/L (7.0-40); AST/SGOT 22 U/L (<34); BILIRUBIN,TOTAL 0.5 MG/DL (0.3-1.2); BLOOD UREA NITROGEN 13 MG/DL (9-23); CALCIUM LEVEL 8.7 MG/DL (8.5-10.1); CARBON DIOXIDE LEVEL 26 MMOL/L (20-31); CHLORIDE LEVEL 99 MMOL/L (98-107); CHOLESTEROL LEVEL 143 MG/DL (<200); CHOLESTEROL RISK RATIO 4.62 (<5); CREATININE FOR GFR 0.65 MG/DL (0.70-1.30); GLOMERULAR FILTRATION RATE > 60.0 (>56); GLUCOSE, FASTING 212 MG/DL (60-100); HDL CHOLESTEROL 30.9 MG/DL (>40); LDL CHOLESTEROL 57.9 MG/DL (<100); NON-HDL-C 112 MG/DL; POTASSIUM SERUM 3.5 MMOL/L (3.5-5.1); SODIUM LEVEL 135 MMOL/L (136-145); TOTAL PROTEIN 7.4 G/DL (5.7-8.2); TRIGLYCERIDES LEVEL 271 MG/DL (<150)
[2022-08-07 12:52] LABS: HEMOGLOBIN A1c 7.8 % (4.0-6.0)
== END ==
LOC: M SFHCCLAY 07:24
PROVIDERS: ATTEND Family Medicine
DX: I10 Essential (primary) hypertension (principal); E11.9 Type 2 diabetes mellitus without complications; Z79.01 Long term (current) use of anticoagulants

== ENCOUNTER → 2023-01-28 | Outpatient (REF) | payer OTHER ==
[2023-01-28 12:23] LABS: ALBUMIN 3.4 G/DL (3.2-5.2); ALKALINE PHOSPHATASE 62 U/L (46-116); ALT/SGPT 20 U/L (7.0-40); AST/SGOT 9 U/L (<34); BILIRUBIN,TOTAL 0.4 MG/DL (0.3-1.2); BLOOD UREA NITROGEN 15 MG/DL (9-23); CALCIUM LEVEL 9.8 MG/DL (8.5-10.1); CARBON DIOXIDE LEVEL 25 MMOL/L (20-31); CHLORIDE LEVEL 100 MMOL/L (98-107); CREATININE FOR GFR 0.58 MG/DL (0.70-1.30); GLOMERULAR FILTRATION RATE > 60.0 (>56); GLUCOSE, FASTING 271 MG/DL (60-100); POTASSIUM SERUM 3.9 MMOL/L (3.5-5.1); SODIUM LEVEL 134 MMOL/L (136-145); TOTAL PROTEIN 7.4 G/DL (5.7-8.2)
[2023-01-28 12:33] LABS: INR 2.29; PROTHROMBIN TIME 25.6 SECONDS (12.5-14.5)
[2023-01-28 12:38] LABS: HEMOGLOBIN A1c 8.4 % (4.0-6.0)
== END ==
LOC: M SFHCCLAY 08:52
PROVIDERS: ATTEND Family Medicine
DX: I26.99 Other pulmonary embolism without acute cor pulmonale (principal); Z79.01 Long term (current) use of anticoagulants

== ENCOUNTER → 2023-07-31 | Outpatient (REF) | payer OTHER ==
[2023-07-31 11:26] LABS: HEMATOCRIT 40.4 % (42.0-52.0); HEMOGLOBIN 14.1 g/dl (13.5-17.5); MEAN CORPUSCULAR HEMOGLOBIN 30.3 pg (27.0-33.0); MEAN CORPUSCULAR HGB CONC 34.9 g/dl (32.0-36.5); MEAN CORPUSCULAR VOLUME 86.7 fl (80.0-96.0); PLATELET COUNT, AUTOMATED 232 10^3/uL (150-450); RED BLOOD COUNT 4.66 10^6/uL (4.30-6.10); WHITE BLOOD COUNT 7.7 10^3/uL (4.0-10.0)
[2023-07-31 11:42] LABS: ALBUMIN 3.3 G/DL (3.2-5.2); ALKALINE PHOSPHATASE 62 U/L (46-116); ALT/SGPT 25 U/L (7.0-40); AST/SGOT 14 U/L (<34); BILIRUBIN,TOTAL 0.3 MG/DL (0.3-1.2); BLOOD UREA NITROGEN 13 MG/DL (9-23); CALCIUM LEVEL 8.9 MG/DL (8.5-10.1); CARBON DIOXIDE LEVEL 30 MMOL/L (20-31); CHLORIDE LEVEL 103 MMOL/L (98-107); CREATININE FOR GFR 0.65 MG/DL (0.70-1.30); GLOMERULAR FILTRATION RATE > 60.0 (>56); GLUCOSE, FASTING 210 MG/DL (60-100); POTASSIUM SERUM 4.3 MMOL/L (3.5-5.1); SODIUM LEVEL 138 MMOL/L (136-145); TOTAL PROTEIN 6.9 G/DL (5.7-8.2)
== END ==
LOC: M SFHCCLAY 08:59
PROVIDERS: ATTEND Family Medicine
DX: I26.99 Other pulmonary embolism without acute cor pulmonale (principal); I10 Essential (primary) hypertension; G47.33 Obstructive sleep apnea (adult) (pediatric); Z79.01 Long term (current) use of anticoagulants

== ENCOUNTER → 2023-10-01 | Outpatient (REF) | payer OTHER | LOC: M SFHCCLAY 09:37 | PROVIDERS: ATTEND Physician Assistant | DX: R31.0 Gross hematuria (principal); Z53.9 Procedure and treatment not carried out, unspecified reason ==

== ENCOUNTER → 2023-10-14 | Outpatient (REF) | payer OTHER ==
[2023-10-14 12:40] LABS: APPEARANCE, URINE HAZY (CLEAR); BACTERIA, URINE AUTO NEGATIVE (NEGATIVE); BILIRUBIN, URINE AUTO NEGATIVE (NEGATIVE); BLOOD, URINE BLOOD NEGATIVE (NEGATIVE); COLOR, URINE YELLOW (YELLOW); GLUCOSE, URINE (UA) AUTO NEGATIVE (NEGATIVE); KETONE, URINE AUTO NEGATIVE (NEGATIVE); LEUKOCYTE ESTERASE, URINE AUTO NEGATIVE (NEGATIVE); MUCUS, URINE SMALL (NEGATIVE); NITRITE, URINE AUTO NEGATIVE (NEGATIVE); PROTEIN, URINE AUTO NEGATIVE (NEGATIVE); RBC, URINE AUTO 0 /HPF (0-3); SPECIFIC GRAVITY URINE AUTO 1.021 (1.002-1.035); SQUAMOUS EPITHELIAL CELL UR AU 2 /HPF (0-6); URIC ACID CRYSTALS SMALL; UROBILINOGEN, URINE AUTO 0.2 mg/dL (0.0-2.0); WBC, URINE AUTO 1 /HPF (0-3)
[2023-10-14 12:43] LABS: ALBUMIN 3.1 G/DL (3.2-5.2); ALKALINE PHOSPHATASE 53 U/L (46-116); ALT/SGPT 17 U/L (7.0-40); AST/SGOT 12 U/L (<34); BILIRUBIN,TOTAL 0.2 MG/DL (0.3-1.2); BLOOD UREA NITROGEN 14 MG/DL (9-23); CARBON DIOXIDE LEVEL 28 MMOL/L (20-31); CHLORIDE LEVEL 106 MMOL/L (98-107); CREATININE FOR GFR 0.66 MG/DL (0.70-1.30); GLOMERULAR FILTRATION RATE > 60.0 (>56); GLUCOSE, FASTING 125 MG/DL (60-100); POTASSIUM SERUM 4.1 MMOL/L (3.5-5.1); SODIUM LEVEL 139 MMOL/L (136-145); TOTAL PROTEIN 6.8 G/DL (5.7-8.2)
[2023-10-15 15:49] LABS: CALCIUM LEVEL 8.7 MG/DL (8.5-10.1)
== END ==
LOC: M SFHCCLAY 07:50
PROVIDERS: ATTEND Urology
DX: R31.0 Gross hematuria (principal)
CPT/HCPCS: 80053; 81001; 87086; 88108; G0103

== ENCOUNTER → 2023-10-29 | Outpatient (CLI) | payer OTHER ==
[~2023-10-29] MED LIST changes: +ISOVUE-370 76% 100ML VIAL As Ordered ONE
== END ==
LOC: M RAD 15:56
PROVIDERS: ATTEND Urology
DX: R31.0 Gross hematuria (principal)
CPT/HCPCS: 74178; Q9967

== ENCOUNTER → 2023-11-13 | Outpatient (REF) | payer OTHER ==
[~2023-11-13] MED LIST changes: -ISOVUE-370 76% 100ML VIAL As Ordered ONE
[2023-11-13 13:39] LABS: HEMATOCRIT 44.1 % (42.0-52.0); HEMOGLOBIN 14.7 g/dl (13.5-17.5); MEAN CORPUSCULAR HEMOGLOBIN 30.1 pg (27.0-33.0); MEAN CORPUSCULAR HGB CONC 33.3 g/dl (32.0-36.5); MEAN CORPUSCULAR VOLUME 90.4 fl (80.0-96.0); PLATELET COUNT, AUTOMATED 261 10^3/uL (150-450); RED BLOOD COUNT 4.88 10^6/uL (4.30-6.10); WHITE BLOOD COUNT 7.3 10^3/uL (4.0-10.0)
== END ==
LOC: M LABDRAWC 12:00
PROVIDERS: ATTEND Physician Assistant Medical
DX: R19.5 Other fecal abnormalities (principal)

== ENCOUNTER → 2023-12-01 | Outpatient (CLI) | payer OTHER ==
[~2023-12-01] MED LIST changes: +AMLO1TAB24 PO; +ECOT81TA5 PO; +LOSA100T46 PO; +SPIR1TAB34 PO; +TIRZ5PEN SQ
== END ==
LOC: M RAD 07:34
PROVIDERS: ATTEND Physician Assistant Medical
DX: K76.0 Fatty (change of) liver, not elsewhere classified (principal); K80.20 Calculus of gallbladder without cholecystitis without obstruction; R16.0 Hepatomegaly, not elsewhere classified

== ENCOUNTER → 2023-12-02 | Outpatient (REF) | payer OTHER ==
[2023-12-02 18:04] LABS: APPEARANCE, URINE CLEAR (CLEAR); BACTERIA, URINE AUTO NEGATIVE (NEGATIVE); BILIRUBIN, URINE AUTO NEGATIVE (NEGATIVE); BLOOD, URINE BLOOD NEGATIVE (NEGATIVE); COLOR, URINE YELLOW (YELLOW); GLUCOSE, URINE (UA) AUTO NEGATIVE (NEGATIVE); KETONE, URINE AUTO NEGATIVE (NEGATIVE); LEUKOCYTE ESTERASE, URINE AUTO NEGATIVE (NEGATIVE); MUCUS, URINE SMALL (NEGATIVE); NITRITE, URINE AUTO NEGATIVE (NEGATIVE); PROTEIN, URINE AUTO NEGATIVE (NEGATIVE); RBC, URINE AUTO 1 /HPF (0-3); SPECIFIC GRAVITY URINE AUTO 1.025 (1.002-1.035); SQUAMOUS EPITHELIAL CELL UR AU 0 /HPF (0-6); UROBILINOGEN, URINE AUTO 0.2 mg/dL (0.0-2.0); WBC, URINE AUTO 0 /HPF (0-3)
== END ==
LOC: M SMT 17:25
PROVIDERS: ATTEND Urology
DX: R31.0 Gross hematuria (principal); R82.89 Other abnormal findings on cytological and histological examination of urine

== ENCOUNTER → 2024-04-07 | Outpatient (REF) | payer OTHER ==
[2024-04-07 19:17] LABS: HEMOGLOBIN A1c 7.3 % (4.0-6.0)
== END ==
LOC: M SFHCCLAY 09:51
PROVIDERS: ATTEND Family Medicine
DX: E11.9 Type 2 diabetes mellitus without complications (principal)

== ENCOUNTER 2024-08-03 15:14 | Emergency (ER) | payer OTHER ==
[~2024-08-03] VITALS: Ht 195.6 cm; Wt 171.9 kg
[2024-08-03] MEDS ORDERED: CELE0.09 (15:25)
[2024-08-03] MEDS ORDERED: COLA100C5 PO (15:25)
[2024-08-03] MEDS ORDERED: AMOX875T PO (19:21)
[2024-08-03 19:28] VITALS: BP 170/93; TEMP 102.9; O2SAT 96
[2024-08-03] MEDS: ACETAMINOPHEN 500 MG TAB PO ONE (19:33)
== END 2024-08-03 19:36 | disposition home or self-care (01) ==
LOC: M ED 15:14
DX: B34.8 Other viral infections of unspecified site (principal); H66.93 Otitis media, unspecified, bilateral; I10 Essential (primary) hypertension; K21.9 Gastro-esophageal reflux disease without esophagitis; Z86.718 Personal history of other venous thrombosis and embolism; Z79.2 Long term (current) use of antibiotics; Z79.82 Long term (current) use of aspirin; Z79.899 Other long term (current) drug therapy

== ENCOUNTER → 2024-09-21 | Outpatient (REF) | payer OTHER ==
[~2024-09-21] MED LIST changes: +AMOX875T PO; +CELE0.09; +COLA100C5 PO
[2024-09-21 15:32] LABS: ALBUMIN 3.5 G/DL (3.2-5.2); ALKALINE PHOSPHATASE 77 U/L (40-129); ALT/SGPT 29 U/L (7.0-40); AST/SGOT 22 U/L (<34); BILIRUBIN,TOTAL 0.6 MG/DL (0.3-1.2); BLOOD UREA NITROGEN 14 MG/DL (9-23); CALCIUM LEVEL 9.5 MG/DL (8.5-10.1); CARBON DIOXIDE LEVEL 26 MMOL/L (20-31); CHLORIDE LEVEL 104 MMOL/L (98-107); CHOLESTEROL LEVEL 147 MG/DL (<200); CREATININE FOR GFR 0.58 MG/DL (0.70-1.30); FREE T4 0.93 NG/DL (0.89-1.76); GLOMERULAR FILTRATION RATE > 60.0 (>56); GLUCOSE, FASTING 167 MG/DL (60-100); HDL CHOLESTEROL 32.6 MG/DL (>40); NON-HDL-C 114.4 MG/DL; SODIUM LEVEL 138 MMOL/L (136-145); THYROID STIMULATING HORMONE 1.909 uIU/ML (0.55-4.78); TOTAL PROTEIN 7.6 G/DL (5.7-8.2); TRIGLYCERIDES LEVEL 317 MG/DL (<150)
[2024-09-21 16:23] LABS: HEMOGLOBIN A1c 8.3 % (4.0-6.0)
== END ==
LOC: M SFHCCLAY 07:54
PROVIDERS: ATTEND Physician Assistant
DX: I10 Essential (primary) hypertension (principal); E11.9 Type 2 diabetes mellitus without complications; R31.0 Gross hematuria; G47.33 Obstructive sleep apnea (adult) (pediatric)